=== PATIENT | male | born 1955 | race Caucasian/White ===

== ENCOUNTER 2020-08-16 15:21 | Observation (INO) | payer MEDICARE, SELFPAY ==
--- NOTE | 2020-07-26 20:35 | HP.PCM_ITS ---
History and Physical History and Physical [facility] Patient Name: Luis Felipe Metzger : 1955 From: JOAQUÍN IRVIN PA-C DATE OF SURGERY: 08/16/2020 SCHEDULED PROCEDURE: bilateral total hip arthroplasty HISTORY OF PRESENT ILLNESS: This is a 64-year-old male who has had ongoing pain in bilateral hips for several years. Patient has had a previous right hip injury and dislocation in 1964. Patient reports his pain is increased with going up and down stairs and sitting. Pain can reach 8/10 with activities. He does have severe startup pain. Pain does awaken him at nighttime. Patient has difficulty with leisure activities due to the pain. Has difficulty getting dressed. Patient feels unsafe golfing due to the pain. Patient has had a previous right hip surgery when he was 11 years old. Patient has tried ice, heat, elevation with no relief in symptoms. He has tried previous home exercises with no relief. He has tried oral medications with minimal relief. He has been on meloxicam and Tylenol. He has been using tramadol for pain control. After failing conservative measures and discussing treatment options with Dr. Mart Houston, the patient does wish to proceed with a bilateral total hip arthroplasty. We are obtaining surgical clearance from the primary care physician Dr. Zarco. Patient currently denies any chest pain, shortness of breath, fevers chills, recent infections. REVIEW OF SYSTEMS: ROS: Const: Denies change in appetite, fever and weight change. CV: Denies chest pain, heart murmur and irregular heartbeat. Resp: Denies cough, pneumonia, shortness of breath, tuberculosis and wheezing. GI: Denies constipation, diarrhea, heartburn, nausea, rectal itching, bloody stools and vomiting. : Denies incontinence. Musculo: Reports gait disturbance, pain, trouble walking and weakness, but denies leg swelling. Skin: Denies Raynaud's, history of shingles and tattoo. Neuro: Denies ambulatory dysfunction, dizziness, numbness/tingling and tremor. Psych: Denies anxiety, insomnia and stress. Gilmer/Lymph: Denies anemia, bleeding/bruising tendency and past transfusion. Reviewed and updated. PAST MEDICAL HISTORY: Advance Care Plan: No Advance Directives Effective Date: 03/29/2020 PMH: Medical Problems: Arthritis Accidents: Fracture - LT HIP-1964 Surgical Hx: Gallbladder - (1998) Knee Arthroscopy Rt - (1994) LT Hip Surgery - (1964) Appendectomy Anesthesia Complications: None Assistive Devices: Glasses Reviewed and updated. SOCIAL HISTORY: SH: Marital: Single.Occupation: Retired.Work Status: Retired.Hand Dominance: Right- handed. Personal Habits: Cigarette Use: Never Smoked Cigarettes.Smokeless Tobacco: Never Used Smokeless Tobacco.E-Cigarette Use: Never used.Alcohol: Occasionally.Drug Use: Denies Use.Enjoy Exercising: Never Exercises. Reviewed, no changes. VITALS: Ht: 71 Wt: 188lb Wt k.277 BMI: 26.2 BP: 132/78 Pulse: 76 Resp: 16 T: 96.6 T: 35.9C Pain Level: 7 ALLERGIES: No Known Drug Allergy MEDICATIONS: Ultram 50 mg 1 by mouth q 6hour as needed pain, Meloxicam 15 mg 1 by mouth every day, Tylenol Extra Strength 500 mg prn PRE-OP EXAM: General appearance:NORMAL Other: Eyes: Conjunctivae and lids: NORMAL Pupils: ERR Ears, Nose, Mouth, and Throat: NORMAL Other: Inspection of lips, teeth and gums: NORMAL Other: Neck: Examination of neck: no masses noted. Respiratory: Assessment of respiratory effort: NORMAL Other: Auscultation of lungs: clear to auscultation no wheezes, rhonchi or rales. Cardiovascular: Auscultation of heart: regular rate and rhythm, no murmurs, gallops or rubs. Exam of carotid arteries: NORMAL Other: Gastrointestinal: Exam of abdomen: soft, nontender, nondistended bowel sounds present. PHYSICAL EXAMINATION: Patient does walk with an antalgic gait. Right hip and left hip has tenderness to palpation on the lateral aspect. He has pain in bilateral groins. Right hip range of motion: 10 flexion contracture with flexion to 70, external rotation 10 and external rotation 15. Left hip has 20 flexion contracture with flexion to 45. Limited range of motion with internal and external rotation. He has 4/5 hip strength secondary to pain. Sensation intact to light touch. IMAGING STUDIES: Previous x-rays of the right hip reveal joint space narrowing with subchondral sclerosis, osteophyte formation consistent with severe stage IV osteoarthritis with bony erosions of the acetabulum. Left hip reveals joint space narrowing with osteophyte formation consistent with severe stage IV osteoarthritis with bony erosions of the acetabulum. IMPRESSION: 1. Left hip severe osteoarthritis with flexion contracture 2. Right hip severe osteoarthritis with flexion contracture PLAN: Dr. Mart Houston did discuss and review with the patient all treatment options including surgical versus nonsurgical options. Patient does wish to proceed with the above-stated procedure. Potential risks, benefits, and complications of the procedure were discussed in detail including but not limited to , infection, nerve and blood vessel damage, persistent pain, numbness, tingling, paresthesias, blood clot, pulmonary embolism, and requirement for possible further surgery. The patient expressed full understanding and has no further questions for the doctor. Patient does agree to proceed with the above-stated procedure and has signed the surgery consent form. We discussed the current risks associated with COVID 19. This does include the risk of exposure while in the hospital. Patient was reassured local hospitals have low infection rates and are taking all necessary precautions to avoid exposure to patients. In addition, we discussed strategies that can be used to help limit exposure including those that limit the patient's time in the hospital. Also using strategies to limit the patient's need for continued inpatient services after being discharged from the hospital. Patient was notified that we will need to comply with any screening or testing the hospital wishes to perform or that surgery may be delayed for any positive results. This dictation was created using voice recognition software. Phonetic and/or grammatical errors may exist. ___ I have re-examined the patient. There are no clinical changes since date of exam. ___ See progress notes for changes. ___ Dictated on admission Date: Time: Signature:
[2020-08-11 11:14] LABS: Absolute Lymphocyte Count 1.33 X10^3/uL (0.83-4.51); Absolute Neutrophil Count 2.7 X10^3/uL (2.0-7.7); Basophil# 0.06 X10^3/uL; Basophil% 1.2 % (0-1); Eosinophil# 0.26 X10^3/uL; Eosinophils% 5.4 % (0-5); Hematocrit 42.8 % (40-54); Hemoglobin 14.3 g/dL (13.0-16.5); Lymphocyte # 1.33 X10^3/ul (0.83-4.51); Lymphocyte % 27.4 % (19-41); Mean Corp Hgb Conc 33.4 g/dL (32-36); Mean Corpuscular Hgb 32.5 pg (27.0-32.0); Mean Corpuscular Volume 97.3 fL (80-94); Mean Platelet Vol. 9.6 fl (6.2-12.0); Monocyte# 0.52 X10^3/uL; Monocyte% 10.7 % (0-10); NRBC Flagged by Analyzer 0 % (0-5); Neutrophil # 2.66 X10^3/uL (2.7-7.7); Neutrophil % 54.9 % (47-70); Platelet Count 240 K/mm3 (150-450); RBC Distribution Width CV 12.6 % (11.6-14.6); RBC Distribution Width SD 45.1 fl (35.1-43.9); White Blood Count 4.9 K/mm3 (4.4-11.0)
[2020-08-11 11:59] LABS: Anion Gap 6 (5-15); BUN 25 mg/dL (7-18); BUN/Creat Ratio 22.9 RATIO (10-20); Calcium,Total 8.9 mg/dL (8.5-10.1); Chloride 105 mmol/L (98-107); Creatinine, Serum 1.09 mg/dL (0.70-1.30); EST Glomerular Filtration Rate 72 mL/min (>60); Est Glom Filt Rate - Afr Amer 87 mL/min (>60); Glucose 89 mg/dL (74-106); Potassium 4.4 mmol/L (3.5-5.1); Sodium Level 140 mmol/L (136-145)
[2020-08-15 11:13] LABS: Albumin, Serum 4.1 g/dL (3.2-5.0)
[2020-08-16] VITALS (11 sets, daily range): BP systolic 115–156; BP diastolic 69–93; PULSE 53–71; RESP 16–18; TEMP 36.5–36.7; O2SAT 97–100; BMI 25.9
[2020-08-16] MEDS: Scopolamine 1mg/72hr Patch 1 PATCH TD ×2 (11:28→15:30)
[2020-08-16] MEDS: Acetaminophen 500 MG Tablet 1000 MG PO ×2 (11:28→20:23)
[2020-08-16] MEDS: Celecoxib 200 MG Capsule 400 MG PO (11:28)
[2020-08-16] MEDS: Gabapentin 600 MG Tablet PO (11:28)
[2020-08-16] MEDS: Lactated Ringers 1,000 ML 999 ML IV ×2 (11:31→16:10)
[2020-08-16] MEDS: Lactated Ringers 1,000 ML 75 ML IV (11:32)
[2020-08-16 11:46] LABS: Bedside Glucose 106 mg/dL (70-110)
[2020-08-16] MEDS: Cefazolin 2 GM in 0.9% Normal Saline 100 ML IV (13:18)
[2020-08-16] MEDS: dexAMETHasone 10 MG/ML Vial IV (13:27)
--- NOTE | 2020-08-16 14:18 | RAD_ITS ---
STUDY: X-RAY - PELVIS AND BILATERAL HIPS REASON FOR EXAM: Male, 65 years old. Intraoperative digital documentation views of right total hip arthroplasty. TECHNIQUE: 5 intraoperative digital documentation images were obtained. COMPARISON: None. FINDINGS: 5 intraoperative digital documentation images show placement of a right total hip arthroplasty. RAD/Hips B/L min 2 views w/ Pelvis IMPRESSION: Intraoperative digital documentation images as described. Electronically Signed: Luis Felipe Coronel MD at 10:53 EDT , Service support ,
--- NOTE | 2020-08-16 15:24 | OP.PCM_ITS ---
Report of Operation Date of Procedure: 08/16/20 Pre-Operative Diagnosis: Bilateral hip primary osteoarthritis Post-Operative Diagnosis: Bilateral hip primary osteoarthritis Surgery/Procedure Performed:: Bilateral minimally invasive direct anterior hip replacement Description of Surgical Findings:: Stable hip with equal leg lengths Surgeon: Mart Houston computer systems security analyst: Richi Florez Type of Anesthesia: Spinal Anesthesiologist: Hunter Lewis Special Medications: 2 g Ancef, 1 g TXA at incision, 1 g TXA closure, 10 mg Decadron, joint cocktail (5 mg Duramorph, 30 mL of 0.5% Ropivicaine, 1000 units of epinephrine, 30 mg of Toradol) Specimen's removed: Bony cuts Estimated Blood Loss (mL): 900 Fluids Replaced: 2000 mL crystalloid Description of Procedure: Components used: Right 1. Accolade 2 [place] femoral stem size 5 127? 2. [place] trident 2 acetabular shell size 56 mm 3. [place] X3 polyethylene F 4. Chris Biolox delta 36mm, -2.5mm femoral head Left 1. Accolade 2 [place] femoral stem size 5 127? 2. Chris trident 2 acetabular shell size 62 mm 3. [place] X3 polyethylene G 4. [place] Biolox delta 36mm, -5mm femoral head Brief history operative indications: 65 yo M who failed conservative measures for their hip osteoarthritis. X-rays were consistent with osteoarthritis including joint space narrowing, osteophyte formation and subchondral cysts. Total hip replacement was discussed with the patient with risks and benefits including but not limited to blood loss, DVTs, PEs, neurovascular damage, dislocation, general risks of anesthesia including loss of life. Patient demonstrated an understanding medical clearance is obtained the patient was consented for surgery. Procedure: On the date of procedure the patient's bilateral hips were marked in the preoperative area. Patient was then taken back to the operating room where anesthesia assumed control of the C-spine and airway and administered anesthetic. Patient was transferred to the operating table and placed in the supine position. The hips were placed at the break of the bed and a sacral bump was placed. Bilateral lower extremities were then prepped out in a sterile fashion using chlorhexidine while the surgeon scrubbed. The PA was vital in the positioning of the patient. Upon reentering the room the our attention was initially turned towards the L lower extremity was draped in the standard orthopedic fashion and the incision was marked. A timeout was called and everyone agreed upon the side, the site, the procedure be performed, antibody given, and patient's identity. At this time incision was made through skin, subcutaneous tissue, and fat down to fascia. The fascia was then incised and the TFL was retracted laterally. A retractor was placed on the lateral border of the femoral neck. Attention was directed to the inferior portion of the approach and all crossing vessels were identified and appropriately coagulated. A retractor was then placed on the medial portion of the femoral neck. The anterior capsule was then cleared of all soft tissue and then H shaped capsulotomy was made. The retractors were then placed inside the capsule. The femoral neck was identified and a cleanup cut was made. At this time a power corkscrew was used to remove the femoral head. Attention was then turned toward the acetabulum where the soft tissues were appropriately retracted and the acetabulum was sequentially reamed to 62 mm. A 62 mm cup was then selected and impacted into place. Acetabular liner was impacted into place and locking mechanism was verified. The position of the acetabular cup was then verified under live fluoroscopy. Attention was then turned to the femur. Soft tissue releases on the medial and lateral femoral neck were appropriately done, the leg was externally rotated and lateralized. A Henderson retractor was placed medially and proximally to the greater trochanter this allowed appropriate visualization and exposure of the femoral canal. Rongeour was then used to remove excess lateral bone. A canal finder and entry broach were used to open the proximal canal. Once we verified we were down the femoral canal we subsequently broached up to a size 5 femur. The appropriate neck was placed in the previously selected head was trialed with a -5 mm neck. Traction was pulled and the hip was reduced with internal rotation. Once it was appropriately reduced and stability was checked. There was minimal shuck, equal leg lengths and appropriate stability with hyperextension and external rotation as well as with 90? flexion and internal r otation. Fluoroscopy was then also used to verify the position of the components and leg lengths using the contralateral side for comparison. The trial components were then dislocated the proximal femur was again exposed and the components were removed from the wound. The final components were verified and opened. The wound was copiously irrigated out with normal saline. The acetabulum was checked for any residual debris. The final components were placed and impacted. Traction and internal rotation were again used to reduce the hip. After adequate reduction the hip remained stable with appropriate leg lengths. The final components were once again checked with live fluoroscopy and were found to be satisfactory. The wound was then copiously irrigated with normal saline once more, and hemostasis was obtained. Closure was then done using #1 Vicryl runner to close the fascia. A 2-0 vicryl interuppted sutures were used to close the subcutaneous skin. A 3-0 Monocryl and Steri-Strips were used for final skin closure. A Silverlon dressing was placed. After completing the first side our attention was turned towards the R lower extremity was draped in the standard orthopedic fashion and the incision was marked. A timeout was called and everyone agreed upon the side, the site, the procedure be performed, antibody given, and patient's identity. At this time incision was made through skin, subcutaneous tissue, and fat down to fascia. The fascia was then incised and the TFL was retracted laterally. A retractor was placed on the lateral border of the femoral neck. Attention was directed to the inferior portion of the approach and all crossing vessels were identified and appropriately coagulated. A retractor was then placed on the medial portion of the femoral neck. The anterior capsule was then cleared of all soft tissue and then H shaped capsulotomy was made. The retractors were then placed inside the capsule. The femoral neck was identified and a cleanup cut was made. At this time a power corkscrew was used to remove the femoral head. Attention was then turned toward the acetabulum where the soft tissues were appropriately retracted and the acetabulum was sequentially reamed to 56 mm. A 56 mm cup was then selected and impacted into place. Acetabular liner was impacted into place and locking mechanism was verified. The position of the acetabular cup was then verified under live fluoroscopy. Attention was then turned to the femur. Soft tissue releases on the medial and lateral femoral neck were appropriately done, the leg was externally rotated and lateralized. A Henderson retractor was placed medially and proximally to the greater trochanter this allowed appropriate visualization and exposure of the femoral canal. Rongeour was then used to remove excess lateral bone. A canal finder and entry broach were used to open the proximal canal. Once we verified we were down the femoral canal we subsequently broached up to a size 5 femur. The appropriate neck was placed in the previously selected head was trialed with a -2.5 mm neck. Traction was pulled and the hip was reduced with internal rotation. Once it was appropriately reduced and stability was checked. There was minimal shuck, equal leg lengths and appropriate stability with hyperextension and external rotation as well as with 90? flexion and internal rotation. Fluoroscopy was then also used to verify the position of the components and leg lengths using the contralateral side for comparison. The trial components were then dislocated the proximal femur was again exposed and the components were removed from the wound. The final components were verified and opened. The wound was copiously irrigated out with normal saline. The acetabulum was checked for any residual debris. The final components were placed and impacted. Traction and internal rotation were again used to reduce the hip. After adequate reduction the hip remained stable with appropriate leg lengths. The final components were once again checked with live fluoroscopy and were found to be satisfactory. The wound was then copiously irrigated with normal saline once more, and hemostasis was obtained. Closure was then done using #1 Vicryl runner to close the fascia. A 2-0 vicryl interuppted sutures were used to close the subcutaneous skin. A 3-0 Monocryl and Steri-Strips were used for final skin closure. A Silverlon dressing was placed. Patient was awakened by anesthesia and transferred to the [facility]. Patient was then transferred to the PACU for recovery. Postoperative plan: Patient will get 24 hours postop antibiotics. Patient will get in-house physical therapy and will be weight-bear as tolerated. Patient will follow up in office in 2 weeks for a wound check and x-rays. Aspirin 81 mg twice daily. Complications No intraoperative complications Admit VTE Documentation VTE Present on Admission: No VTE Mechan Device Prophylaxis: SCD's and Thigh High CASTILLO Hose VTE Pharm Prophylaxis ordered?: Yes
--- NOTE | 2020-08-16 16:20 | RAD_ITS ---
HISTORY: Post Op -- AP both hips on single renato/lateral of op hip PACU EXAMINATION/TECHNIQUE: XR Hips Bilateral with Pelvis when performed; 2 Views: 3 views COMPARISON: None FINDINGS: 3 views show bilateral hip replacements in anatomic alignment. No acute fracture or pathologic lucency. Subcutaneous emphysema over the bilateral operative sites. RAD/Hips B/L min 2 views w/ Pelvis IMPRESSION: Status post bilateral hip replacements. at 1753 Reported and signed by: Hayden Carranza MD Electronically Signed: Hayden Carranza MD at 17:52 EDT Tel , Service support ,
[2020-08-16] MEDS: Lactated Ringers 1,000 ML 125 ML IV ×2 (17:02→18:39)
[2020-08-16] MEDS: oxyCODONE 5 MG Tablet PO (18:40)
--- NOTE | 2020-08-16 19:05 | PN.HOSP_ITS ---
Subjective Subjective This is a 65 years old male patient underwent elective bilateral total hip replacement and I am seeing this patient for postoperative medical management. Currently, patient stated that his pain is manageable. He has no past medical history. His vital signs are stable. Objective Data Objective Data Vital Signs: Vital Signs Temp Pulse Resp BP Pulse Ox 98.0 F 71 18 156/84 H 100 08/16/20 18:15 08/16/20 18:15 08/16/20 18:15 08/16/20 18:15 08/16/20 18:15 Oxygen Flow Rate (L/min) 6 Oxygen Delivery Method Room Air Weight: 186 lb 8.177 oz Body Mass Index (BMI) 25.9 Intake & Output: Intake and Output for Last 24 Hours 08/14/20 08/15/20 08/16/20 23:59 23:59 23:59 Intake Total 3637.08 / 3637.08 Balance 3637.08 / 3637.08 Lab / Micro Data Result Diagrams: 08/11/20 10:18 08/11/20 10:18 Labs: Laboratory Results - last 24 hr 08/16/20 11:25 POC Glucose 106 Micro: Microbiology 08/11/20 10:18 Swab (Method) Nasal Screen MRSA/MSSA - Final Radiography Diagnostic Testing: Radiology Impression Hip/Pelvis X-Ray 08/16/20 16:20 IMPRESSION: Status post bilateral hip replacements. at 1753 Reported and signed by: Hayden Carranza MD Electronically Signed: Hayden Carranza MD at 17:52 EDT Tel , Service support , Physical Exam Const alert, oriented x3, no apparent distress and no limitations General Appearance: cooperative HEENT normocephalic, head/scalp atraumatic, external ears normal, external nose normal and moist oral mucous membranes Eyes PERRL, EOMs intact bilaterally, conjunctivae normal and no scleral icterus General Eye: normal appearance of both eyes Neck no lymphadenopathy, supple, no meningeal signs, no JVD and no carotid bruits Lymph Lymphatic: no lymphadenopathy noted Resp normal respiratory effort, normal air movement and clear to auscultation bi laterally Auscultation: Negative for crackles, rales, rhonchi or wheezes Cardio regular rate, regular rhythm, S1 normal heart sound, S2 normal heart sound, no murmurs and no JVD GI normal to inspection, nondistended, normoactive bowel sounds, soft to palpation, non-tender and non-distended; Negative for hepatosplenomegaly Extremity normal to inspection, full ROM and no clubbing, cyanosis or edema Skin no rashes or lesions noted, no wounds and no petechiae Neuro oriented x3, CN's II-XII intact bilaterally and moves all extremities Sensorium / Orientation: alert Speech: speech normal Motor Exam: strength 5/5 throughout Psych mental status grossly normal, affect normal and denies hallucinations Assessment & Plan Assessment/Plan (1) Status post bilateral hip replacements: PLAN: This is a 65 years old male patient underwent elective bilateral hip replacement and I am seeing this patient for postoperative medical management. #1 status post bilateral hip replacement: This was done for bilateral hip osteoarthritis, postop day 0. Patient is on IV cefazolin for perioperative prophylaxis. Vital signs are stable. Started on Xarelto for DVT prophylaxis starting tomorrow. Orthopedic surgery on the case. #2 no past medical history: Patient does not take any medication for chronic medical problems. #3 DVT prophylaxis: SCDs. This note was generated with [employer] dictation software. It may contain incorrect words, spelling, and punctuation that were not noted in checking the note before signing. Charges/Coding Visit Charges OBSV E&M: 30081 Initial observation care L1
[2020-08-16] MEDS: Morphine 2 MG/ML Syringe IV (20:23)
[2020-08-16] MEDS: Cefazolin 1 GM/50 ML BAG IV (21:54)
[2020-08-16] MEDS: Senna/Docusate Sodium 1 Tablet 2 TABLET PO (21:54)
[2020-08-17] MEDS: Acetaminophen 500 MG Tablet 1000 MG PO ×2 (04:57→11:22)
[2020-08-17] MEDS: Cefazolin 1 GM/50 ML BAG IV (05:02)
[2020-08-17] MEDS: Rivaroxaban 10 MG Tablet PO (05:02)
[2020-08-17 05:03] VITALS: BP 132/54; PULSE 56; RESP 18; TEMP 36.7; O2SAT 97
[2020-08-17 06:05] LABS: Hematocrit 31.5 % (40-54); Hemoglobin 10.7 g/dL (13.0-16.5); Mean Corpuscular Hgb 32.5 pg (27.0-32.0); Mean Corpuscular Volume 95.7 fL (80-94); Mean Platelet Vol. 9.3 fl (6.2-12.0); Platelet Count 188 K/mm3 (150-450); RBC Distribution Width CV 12.9 % (11.6-14.6); RBC Distribution Width SD 45.1 fl (35.1-43.9); Red Blood Count 3.29 M/mm3 (4.6-6.2); White Blood Count 17.7 K/mm3 (4.4-11.0)
[2020-08-17 06:30] LABS: Anion Gap 5 (5-15); BUN 22 mg/dL (7-18); BUN/Creat Ratio 20.8 RATIO (10-20); Calcium,Total 8.4 mg/dL (8.5-10.1); Chloride 106 mmol/L (98-107); Creatinine, Serum 1.06 mg/dL (0.70-1.30); EST Glomerular Filtration Rate 75 mL/min (>60); Est Glom Filt Rate - Afr Amer 90 mL/min (>60); Glucose 134 mg/dL (74-106); Potassium 4.6 mmol/L (3.5-5.1); Sodium Level 136 mmol/L (136-145)
[2020-08-17] MEDS: Ensure Surgery 237 ML LIQUID PO (08:27)
[2020-08-17] MEDS: oxyCODONE 5 MG Tablet PO ×2 (08:28→14:24)
[2020-08-17] MEDS: Famotidine 20 MG Tablet PO (08:28)
[2020-08-17] MEDS: Senna/Docusate Sodium 1 Tablet 2 TABLET PO (08:28)
--- NOTE | 2020-08-17 08:43 | PCM.PN.ORT ---
Subjective Subjective The patient was sitting in bedside chair upon examination. Patient denies any chest pain, shortness of breath, dizziness, lightheadedness, nausea or vomiting, or calf pain. Pain is controlled on medications. No adverse overnight events. Patient underwent a bilateral total hip replacement. Overall he is doing well today. Pain is been well controlled. He does have some thigh soreness. He has been up walking. Objective Data Objective Data Vital Signs: Vital Signs Temp Pulse Resp BP Pulse Ox 98.1 F 56 L 18 132/54 H 97 08/17/20 05:03 08/17/20 05:03 08/17/20 05:03 08/17/20 05:03 08/17/20 05:03 Oxygen Flow Rate (L/min) 6 Oxygen Delivery Method Room Air Weight: 84.6 kg Body Mass Index (BMI) 25.9 Intake & Output: Intake and Output for Last 24 Hours 08/15/20 08/16/20 08/17/20 23:59 23:59 23:59 Intake Total 4501.66 / 4501.66 650 / 650 Output Total 500 / 500 Balance 4001.66 / 4001.66 650 / 650 Lab / Micro Data Result Diagrams: 08/17/20 05:50 08/17/20 05:50 Labs: Laboratory Results - last 24 hr 08/16/20 08/17/20 08/17/20 11:25 05:50 05:50 WBC 17.7 H RBC 3.29 L Hgb 10.7 L Hct 31.5 L MCV 95.7 H MCH 32.5 H MCHC 34.0 RDW Std Deviation 45.1 H RDW Coeff of Noel 12.9 Plt Count 188 MPV 9.3 Sodium 136 Potassium 4.6 Chloride 106 Carbon Dioxide 25.0 Anion Gap 5 BUN 22 H Creatinine 1.06 Estim Creat Clear Calc 74.00 Est GFR (MDRD) Af Amer 90 Est GFR (MDRD) Non-Af 75 BUN/Creatinine Ratio 20.8 H Glucose 134 H Calcium 8.4 L POC Glucose 106 Micro: Microbiology 08/11/20 10:18 Swab (Method) Nasal Screen MRSA/MSSA - Final Radiography Diagnostic Testing: Radiology Impression Hip/Pelvis X-Ray 08/16/20 16:20 IMPRESSION: Status post bilateral hip replacements. at 1753 Reported and signed by: Hayden Carranza MD Electronically Signed: Hayden Carranza MD at 17:52 EDT Tel , Service support , Physical Exam Narrative Vital signs stable and afebrile. Patient is able to plantarflex and dorsiflex actively bilaterally. Sensation is intact to light touch to saphenous, sural, superficial and deep peroneal, and tibial distribution. Dressings are clean dry and intact. Negative Homans bilaterally, negative signs and symptoms of DVT. Const alert, oriented x3 and no apparent distress Assessment & Plan Assessment/Plan (1) Status post bilateral hip replacements: PLAN: 1. S/P bilateral total hip arthroplasty POD #1 2. Continue Pain Medications: Tylenol and oxycodone 3. DVT Prophylaxis: Xarelto secondary to bilateral hip arthroplasty, will do this for 2 weeks postoperatively then switch over to baby aspirin 81 mg twice daily at his 2-week postop visit 4. PT/OT: Weightbearing as tolerated 5. H & H: 10.7/31.5, asymptomatic. Postoperative anemia secondary to acute blood loss from surgery without any intra operative complications. 6. Reactive leukocytosis: Currently 17.7, afebrile. Patient did receive Decadron intraoperatively. 7. Continue postoperative medical management per medicine: Case discussed with hospitalist and okay for discharge per medicine 8. Encouraged Incentive Spirometry 9. Disposition: Plan will be for discharge home today as long as patient is medically stable, pain is well controlled, and tolerates physical therapy. He will use a walker for ambulatory assistance. Patient has outpatient physical therapy established. He will follow-up per postop instructions. I have reviewed the [place] Automated Rx Reporting System (OARRS) report for this patient for refill pattern and other prescriber involvement as part of the appropriate surveillance for the provision of acute and chronic controlled medications. The report was requested and reviewed on the date of this entry and was considered in the prescribing process.
--- NOTE | 2020-08-17 08:47 | DCINST_ITS ---
Discharge Instructions Diet Discharge Diet: No restrictions Activity Discharge Activity: May Not Drive (while taking narcotic pain medications.) May shower in (days): 1 (only if incision is dry and without drainage. Do NOT soak/submerge in tub/pool/holman/stream/hot tub.)) Ice area for (Minutes): 20 (Every 1-2 hours while awake[address] place barrier between ice and skin.) Weight Bearing Status: Weight bearing as tolerated Keep extremity elevated above heart level: Operative Extremity Dressing / Incision Call your doctor if your incision/area has: Continuous Slow Oozing, Sudden Increased Bleeding, Increased Pain/ Swelling, Increased Redness and Foul Smelling Discharge Call your doctor if you observe: Fever of 101 or Higher, Shortness of breath, Chest pain, Calf discomfort and Uncontrolled pain Remove Dressing in: 4 days (Dressings can be removed on August 21, 2020) Additional Dressing/Incision Instructions:: Follow [facility] Post-op Instructions. Once postoperative dressing has been removed, only use gentle soap and water over the incision. Do not use any ointments, Neosporin, salves, alcohol pads over the incision for 6 weeks postoperatively. Do not submerge underwater for 6 weeks postoperatively. Continue with CASTILLO hose/elastic stockings for 2 weeks postoperatively. May remove at nighttime but needs to be placed back on the leg during the day. Do NOT use alcohol with narcotic pain medication. Do NOT make important decisions while taking narcotic medication. If you have problems with taking your medication (rash, itching, nausea, etc.) call the office at once. Follow Up Care Test Results: Test results from this visit will be discussed in further detail at your follow-up appointment, if applicable. Discharge Plan Admission Admit Date/Time: 08/16/20 15:21 Attending Provider: Armando Loza Primary Care Provider: Care Physician,No Primary Consulting Providers: Ozzy Ramesh Discharge Orders/Prescriptions Prescriptions: New acetaminophen 500 mg Tablet 1,000 mg PO TID Qty: 90 RF: 0 oxycodone 5 mg Tablet 5 - 10 mg PO Q4H PRN PRN (Reason: Pain Score 4-10) 5 Days Qty: 60 RF: 0 Xarelto 10 mg Tablet 10 mg PO DAILY Qty: 13 RF: 0 sennosides-docusate sodium [Stool Softener-Stimulant Laxat] 8.6-50 mg Tablet 2 tab PO BID Qty: 14 RF: 0 Discontinued meloxicam [Mobic] 15 mg Tablet 15 mg PO DAILY RF: 0 tramadol 50 mg Tablet 50 mg PO DAILY PRN (Reason: Pain) RF: 0 Referrals / Follow Up: Care Physician,No Primary [Primary Care Provider] - Richi Florez PA-C [PHYSICIAN LOGISTICS SOLUTION MANAGER] - 08/30/20 2:30 pm Physical,Therapy [Other] - 08/21/20 1:30 am Disposition Disposition (needs filled in before D/C Order can be placed): Home, Self Care
--- NOTE | 2020-08-17 10:05 | CASEMGMT ---
KARSTEN PATTEN Assessment: Face to Face with pt for initial transition planning/care coordination assessment. KARSTEN PATTEN introduced self and role at [facility], pt voices understanding and consents to assessment. Pt is A/O x4 and answers all questions appropriately at this time. Pt lying in bed in no distress. Care providers, pharmacy, and demographics verified/updated. Admitting Dx: Bilat THR anterior PCP: Carolee- Pt was unsure. TC to [facility] and verified. Specialists: margaret Tejeda Preferred Pharmacy: [facility] Insurance: [place] [facility] [place] Prescription Benefit: yes LW/HPOA: Pt denies having LW/DPOA. LNOK: Diamond Aly, dtr Living Arrangements: Pt lives alone in a two story cabin with 3 steps to enter. Pt uses main floor only and states his uncle is working on putting a ramp in to enter. Pt is normally I in ADL's and denies concerns at home. Pt states his brother who lives in [place] will be staying with him for 10 days. Transportation: Pt states his brother is able to transport him for 10 days to medical appts. He questions if transportation is provided to [facility] from [facility]. He is aware that transportation would only be provided to [employer]. Pt states he is able to obtain further transportation with his dtr and grandson. DME/HHC/SNF: Pt has a FWW and raised toilet seat. He states a family member is working on getting a shower chair for him. Pt denies having history of HH or SNF stay. Pt has outpt therapy set up at [facility] on July. Pt states no concerns with going home at time of dc. Pt states no further concerns/needs. CM to follow. Advised pt to ask CM if any further question/concerns/needs arise, voices understanding. Pt Goal: Home Plan: Home with outpt therapy.
[2020-08-17] MEDS: Ketorolac 15 MG/ML Vial IV (11:19)
[2020-08-17 11:29] VITALS: BP 154/76; PULSE 62; RESP 18; TEMP 37.3; O2SAT 99
--- NOTE | 2020-08-17 15:25 | PCM.PN.HOSP ---
Subjective Subjective Doing well, no issues overnight. Pain is controlled. Objective Data Objective Data Vital Signs: Vital Signs Temp Pulse Resp BP Pulse Ox 99.1 F 62 18 154/76 H 99 08/17/20 11:29 08/17/20 11:29 08/17/20 11:29 08/17/20 11:29 08/17/20 11:29 Oxygen Flow Rate (L/min) 6 Oxygen Delivery Method Room Air Weight: 186 lb 8.177 oz Body Mass Index (BMI) 25.9 Intake & Output: Intake and Output for Last 24 Hours 08/16/20 08/17/20 08/18/20 03:59 03:59 03:59 Intake Total 4501.66 / 4501.66 650 / 650 Output Total 500 / 500 Balance 4001.66 / 4001.66 650 / 650 Lab / Micro Data Result Diagrams: 08/17/20 05:50 08/17/20 05:50 Labs: Laboratory Results - last 24 hr 08/17/20 08/17/20 05:50 05:50 WBC 17.7 H RBC 3.29 L Hgb 10.7 L Hct 31.5 L MCV 95.7 H MCH 32.5 H MCHC 34.0 RDW Std Deviation 45.1 H RDW Coeff of Noel 12.9 Plt Count 188 MPV 9.3 Sodium 136 Potassium 4.6 Chloride 106 Carbon Dioxide 25.0 Anion Gap 5 BUN 22 H Creatinine 1.06 Estim Creat Clear Calc 74.00 Est GFR (MDRD) Af Amer 90 Est GFR (MDRD) Non-Af 75 BUN/Creatinine Ratio 20.8 H Glucose 134 H Calcium 8.4 L Micro: Microbiology 08/11/20 10:18 Swab (Method) Nasal Screen MRSA/MSSA - Final Radiography Diagnostic Testing: Radiology Impression Hip/Pelvis X-Ray 08/16/20 14:18 IMPRESSION: Intraoperative digital documentation images as described. Electronically Signed: Luis Felipe Coronel MD at 10:53 EDT , Service support , Hip/Pelvis X-Ray 08/16/20 16:20 IMPRESSION: Status post bilateral hip replacements. at 1753 Reported and signed by: Hayden Carranza MD Electronically Signed: Hayden Carranza MD at 17:52 EDT Tel , Service support , Physical Exam Const alert, oriented x3 and no apparent distress General Appearance: cooperative HEENT normocephalic and moist oral mucous membranes Eyes PERRL, EOMs intact bilaterally and conjunctivae normal Neck supple and no JVD Resp normal respiratory effort, no retractions, no use of accessory muscles and clear to auscultation bilaterally Auscultation: Negative for crackles, rales, rhonchi or wheezes Cardio regular rate, regular rhythm, S1 normal heart sound, S2 normal heart sound and no murmurs GI soft to palpation, non-tender and non-distended; Negative for hepatosplenomegaly Extremity no clubbing, cyanosis or edema Skin no rashes or lesions noted Skin Narrative: Incision CDI Neuro no focal motor deficits and no sensory deficits noted Psych affect normal Appearance: appropriate Assessment & Plan Assessment/Plan (1) Status post bilateral hip replacements: PLAN: 1. 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 No significant past medical history, can resume his as needed medications. DVT: Xarelto Charges/Coding Visit Charges Inpatient E&M: 44221 Subs Hosp L2
== END 2020-08-17 14:40 | disposition home or self-care (01) ==
LOC: MS3 16:20
PROVIDERS: Anesthesiology; Admitting Provider Specialist; PCP Family Medicine; Referring Provider Specialist; Visit Provider Family Medicine
PROC: (CPT 27284; principal; 2020-08-16 12:50)
DX: M16.0 Bilateral primary osteoarthritis of hip (principal); Z79.899 Other long term (current) drug therapy; Z79.01 Long term (current) use of anticoagulants; G25.81 Restless legs syndrome
CPT/HCPCS: 01214; 27130; 36415; 73521; 76000; 80048; 82040; 82962; 83735; 85025; 85027; 87081; 96361; 96365; 96366; 96375; 97110; 97162; 97166; 97530; 97535; 99218; 99251; C1776; J7120; G0378; G0379; G0463

== ENCOUNTER 2021-02-24 08:34 | Emergency (ER) | payer MEDICARE, SELFPAY ==
[2021-02-24 08:34] VITALS: BP 187/97; PULSE 73; RESP 16; TEMP 35.9; O2SAT 99; BMI 25.7
--- NOTE | 2021-02-24 08:48 | CT_ITS ---
STUDY: CT SOFT TISSUE NECK WITH CONTRAST REASON FOR EXAM: Male, 65 years old. R.O. peritonsillar abscess RADIATION DOSAGE (If Supplied By Facility): CTDIvol = ( 17.44 ) mGy, DLP = ( 566.42 ) mGycm TECHNIQUE: The patient was scanned in a multi-detector CT scanner. High resolution transaxial imaging was performed following intravenous administration of IV 100mL Isovue-370. Sagittal and coronal images were reconstructed. Individualized dose optimization techniques were used for this CT. COMPARISON: None. FINDINGS: Normal bilateral parotid glands. Normal bilateral installer interior assemblies spaces. Normal bilateral parapharyngeal spaces. Normal bilateral carotid spaces. Normal bilateral sublingual and submandibular glands and spaces. Normal visualized nasopharynx. Normal retropharyngeal space. Normal perivertebral space. Enlargement of the left lingual tonsil with a 2 cm fluid collection consistent with a peritonsillar abscess. The visualized tongue, tongue base and oropharynx are normal. The visualized cervical lymph nodes (levels I-) are within normal size limits, and maintain normal morphology. There is no demonstrated solid or cystic mass lesion. There is no abnormal contrast enhancement. Normal epiglottis, bilateral vallecula and hypopharynx. The pre-epiglottic and paraglottic adipose spaces are normal. Normal visualized bilateral piriform sinuses, aryepiglottic folds, vocal cords, and arytenoid-cricoid articulations. Normal subglottic trachea. Normal bilateral lobes of the thyroid gland. Normal visualized pulmonary apices. Normal visualized paranasal sinuses. Normal visualized cervical spine. CT/Soft Tissue Neck WITH Contrast IMPRESSION: 2 cm left peritonsillar abscess. Electronically Signed: Ramon Diaz MD at 9:46 EST Tel , Service support ,
--- NOTE | 2021-02-24 08:49 | EDS_ITS ---
HPI HPI - URI History of Present Illness Chief Complaint: Sore Throat Detail of Chief Complaint: Sore throat that started 2 days ago Informant: patient Narrative Narrative: Patient presents with a sore throat that started 2 days ago. He complains of the pain radiating to his left ear. Patient denies fever. He has had minimal cough. He states that it hurts to swallow. He denies difficulty breathing. He denies sick contacts. He tells me has no medical history. Patient went to urgent care and was referred to the ER for concern about peritonsillar abscess. Prior similar symptoms: No ROS ROS ED Constitutional Constitutional ED: Reports systems reviewed and no addt'l complaints, except as documented; Denies body ache(s), change in weight or chills Eyes Eyes: Denies acute decrease in peripheral vision, change in vision, double vision or loss of vision ENT ENT ED: Reports none and sore throat; Denies ear pain, lip swelling, loss taste/smell, neck pain or otalgia Cardiovascular Cardiovascular: Reports none; Denies abdominal pain, chest pain with activity, leg edema, lightheadedness, palpitations, rapid heart rate or syncope Respiratory/Chest Respiratory/Chest: Reports none and cough; Denies change in mental status, dry cough, dyspnea, hemoptysis, shortness of breath at rest or shortness of breath with exertion Gastrointestinal Gastrointestinal: Reports none; Denies abdominal pain, change in stool character, diarrhea, hematemesis, hematochezia, melena, rectal bleeding or vomiting Genitourinary Genitourinary ED: Reports none; Denies abdominal discomfort, anuria, dysuria, genital pain or polyuria Musculoskeletal Musculoskeletal: Reports none; Denies arthralgias, back pain, difficulty walking, extremity pain, muscle weakness or myalgias Integumentary Reports none; Denies abscess or rash Neurologic Neurologic: Reports none; Denies abnormal gait, confusion, focal weakness, frequent falls, headache(s), loss of vision, numbness, paresthesias, radicular pain, vertigo or weakness Psychiatric Psychiatric: Reports systems reviewed and no addt'l complaints, except as documented and none; Denies behavioral changes, confusion, difficulty concentrating, hallucinations, suicidal ideation, tactile hallucinations or visual hallucinations Endocrine Endocrinology: Denies none, cold intolerance, excessive sweating, fatigue or heat intolerance Hematologic/Lymphatic Hematologic/Lymphatic: Reports none; Denies anemia, easy bleeding or easy bruising Allergic/Immunologic Allergic/Immunologic ED: Denies as per HPI, none, lip swelling, mouth swelling, throat swelling, tongue swelling or hives PFSH [facility] Medical History (Updated 02/24/21 @ 11:[address] John Singleton, DO) Arthritis Back pain History of pain when walking Hx of dislocation of hip Marijuana use Non-smoker Restless legs Shortness of breath on exertion Allergy/AdvReac Type Severity Reaction Status Date / Time No Known Allergies Allergy Verified 02/24/21 08:36 Surgical History Hx laparoscopic cholecystectomy Hx of appendectomy Hx of colonoscopy Social History Smoking Status: Never smoker EXAM Physical Exam Const Vital Signs: 02/24/21 08:34 Temperature 96.7 F L Temperature Source Temporal Pulse Rate 73 Respiratory Rate 16 Blood Pressure 187/97 H Blood Pressure Mean 127 Pulse Ox 99 Oxygen Delivery Method Room Air Positive well nourished and well developed General Appearance ED: well developed and NAD HEENT Reports moist mucous membranes HEENT Narrative: Unable to visualize TMs as he has wax buildup bilaterally. Patient does have diffuse pharyngeal erythema with edema of the uvula. No trismus on exam. No exudates noted. normocephalic and atraumatic; Negative for trauma or tenderness Eyes PERRL and EOMs intact bilaterally General Eye ED: Negative for pale conjunctiva or scleral icterus Neck supple and no JVD Neck Narrative: Mild anterior lymphadenopathy noted. General: lymphadenopathy; Negative for tenderness Chest Wall inspection of chest normal and palpation of chest normal Chest: Negative for tenderness Resp normal respiratory effort and clear to auscultation bilaterally Effort and Inspection: Negative for respiratory distress or pain with movement Auscultation: Negative for rhonchi, wheezes or diminished lung sounds Cardio regular rate, regular rhythm, S1 normal heart sound, S2 normal heart sound and no murmurs Peripheral Pulses: pulses 2+ throughout GI normal to inspection, nondistended, normoactive bowel sounds, soft to palpation, non-tender, non-distended and no masses Back/Spine no CVA tenderness and no thoracic nor lumbar tenderness Extremity normal to inspection General Extremety ED: Negative for edema General Extremity: Negative for edema Neuro oriented x3, CN's II-XII intact bilaterally, no sensory deficits noted and gait normal Sensorium / Orientation: awake, alert, oriented to person, oriented to place and oriented to time Motor Exam: strength 5/5 throughout and strength abnormal Psych mental status grossly normal Skin no rashes or lesions noted and no wounds MDM MDM MDM Narrative Medical decision making narrative: IV line established on arrival. Patient was medicated with Decadron and Toradol and started on Zosyn IV. CT scan of the neck with IV contrast showed a 2 cm left peritonsillar abscess. No evidence of airway obstruction. I discussed results with patient and given that we do not have ENT coverage he did not have a preference as far as transfer to another [facility]. We attempted to contact [facility] as well as [facility] in [facility] and was unable to reach anybody there from ENT. We discussed case with ENT resident at [facility] in [place] who asked that we transfer patient to the emergency department there and they will see him in the department. I discussed case with emergency room physician there Dr. Toney Seaman who accepted transfer of patient. Patient has a family member who would like to drive him there and I think this is reasonable. I did advise the patient to remain n.p.o. and he understands the importance of this. Lab Data Attestation: I reviewed the patient's lab results. Labs: Laboratory Results - last 24 hr 02/24/21 02/24/21 08:50 08:50 WBC 14.4 H RBC 4.73 Hgb 14.9 Hct 45.0 MCV 95.1 H MCH 31.5 MCHC 33.1 RDW Std Deviation 48.4 H RDW Coeff of Noel 13.6 Plt Count 284 MPV 9.2 Immature Gran % (Auto) 0.400 Neut % (Auto) 77.1 H Lymph % (Auto) 9.1 L [place] % (Auto) 12.3 H Eos % (Auto) 0.8 Baso % (Auto) 0.3 Absolute Neuts (auto) 11.1 H Absolute Lymphs (auto) 1.31 Nucleated RBC % 0 Diff Path Review May foll Sodium 138 Potassium 3.8 Chloride 107 Carbon Dioxide 26.0 Anion Gap 5 BUN 24 H Creatinine 1.11 Estim Creat Clear Calc 70.66 Est GFR (MDRD) Af Amer 85 Est GFR (MDRD) Non-Af 71 BUN/Creatinine Ratio 21.6 H Glucose 122 H Calcium 9.4 Radiography Diagnostic Testing: Clinical Impression(s) from Imaging Studies Soft Tissue Neck CT 02/24/21 08:48 IMPRESSION: 2 cm left peritonsillar abscess. Electronically Signed: Ramon Diaz MD at 9:46 EST Tel , Service support , Discharge Plan Triage Chief Complaint: Sore Throat ED Provider: John Singleton Dx/Rx/DC Orders Clinical Impression: Abscess, peritonsillar Instructions: ED Peritonsillar Abscess Primary Care Provider: Chandrika Zarco Referrals: Chandrika Zarco MD [Primary Care Provider] - Disposition Disposition: Transfer to Another Type [facility]
[2021-02-24] MEDS: Ketorolac 15 MG/ML Vial IV (09:00)
[2021-02-24 09:02] LABS: Absolute Lymphocyte Count 1.31 X10^3/uL (0.83-4.51); Absolute Neutrophil Count 11.1 X10^3/uL (2.0-7.7); Basophil# 0.05 X10^3/uL; Basophil% 0.3 % (0-1); Eosinophil# 0.11 X10^3/uL; Eosinophils% 0.8 % (0-5); Hemoglobin 14.9 g/dL (13.0-16.5); Lymphocyte # 1.31 X10^3/ul (0.83-4.51); Lymphocyte % 9.1 % (19-41); Mean Corp Hgb Conc 33.1 g/dL (32-36); Mean Corpuscular Hgb 31.5 pg (27.0-32.0); Mean Corpuscular Volume 95.1 fL (80-94); Mean Platelet Vol. 9.2 fl (6.2-12.0); Monocyte# 1.77 X10^3/uL; Monocyte% 12.3 % (0-10); NRBC Flagged by Analyzer 0 % (0-5); Neutrophil # 11.13 X10^3/uL (2.7-7.7); Neutrophil % 77.1 % (47-70); POSITIVE DIFFERENTIAL YES; Platelet Count 284 K/mm3 (150-450); RBC Distribution Width CV 13.6 % (11.6-14.6); RBC Distribution Width SD 48.4 fl (35.1-43.9); Red Blood Count 4.73 M/mm3 (4.6-6.2); White Blood Count 14.4 K/mm3 (4.4-11.0)
[2021-02-24] MEDS: dexAMETHasone 10 MG/ML Vial IV (09:02)
[2021-02-24 09:03] LABS: Differential Indicated SCAN CRITERIA MET
[2021-02-24] MEDS: 0.9% Normal Saline 1,000 ML 150 ML IV (09:03)
[2021-02-24 09:16] LABS: Anion Gap 5 (5-15); BUN 24 mg/dL (7-18); BUN/Creat Ratio 21.6 RATIO (10-20); Calcium,Total 9.4 mg/dL (8.5-10.1); Chloride 107 mmol/L (98-107); Creatinine, Serum 1.11 mg/dL (0.70-1.30); EST Glomerular Filtration Rate 71 mL/min (>60); Est Glom Filt Rate - Afr Amer 85 mL/min (>60); Estimated Creatinine Clearance 70.66 ml/min; Glucose 122 mg/dL (74-106); Potassium 3.8 mmol/L (3.5-5.1); Sodium Level 138 mmol/L (136-145)
--- NOTE | 2021-02-24 10:12 | NURSING ---
CALLED [facility] FOR TRANSFER. DR CANDACE MARIANO, ENT NUMBER FOR ANSWERING SERVICE IS [phone]
--- NOTE | 2021-02-24 10:52 | NURSING ---
CALLED [facility]. DR JESSICA PYLE IS ENT. SHE WILL PAGE HIM
--- NOTE | 2021-02-24 11:33 | NURSING ---
PATIENT ACCEPTED AT [facility]. DR ASTRID HARRISON. GOING ER TO
[2021-02-24 11:49] VITALS: BP 145/83; PULSE 59; RESP 14; RESP 16; O2SAT 98
[2021-02-26 13:26] LABS: Pathologist Review Reviewed
== END 2021-02-24 11:58 | disposition other institution (70) ==
PROVIDERS: Emergency Provider Emergency Medicine; PCP Family Medicine
DX: J36 Peritonsillar abscess (principal)
CPT/HCPCS: 70491; 80048; 85025; 87070; 87426; 87880; 96365; 96375; 99284; J7030; Q9967; A4216

== ENCOUNTER 2021-03-19 15:20 | Outpatient (CLI) | payer MEDICARE, SELFPAY | END 2021-03-19 23:59 | disposition short-term general hospital (02) | LOC: LABSPEC 15:25 | PROVIDERS: PCP Family Medicine; Visit Provider Otolaryngology | DX: J03.90 Acute tonsillitis, unspecified (principal) | CPT/HCPCS: 87070 ==

== ENCOUNTER → 2024-12-30 | Outpatient (CLI) | payer MEDICARE, SELFPAY ==
--- NOTE | 2024-12-30 12:52 | ECHOD_ITS ---
Reason For Study ECHO/Echo Complete
== END | disposition home or self-care (01) ==
LOC: CVS 12:51
PROVIDERS: PCP Family Medicine; Referring Provider Family Medicine; Visit Provider Family Medicine
DX: R01.1 Cardiac murmur, unspecified (principal)
CPT/HCPCS: 93306; A4216